=== PATIENT | female | born 2000 | race Hispanic/Latino ===

== ENCOUNTER 2020-10-02 21:59 | Emergency (ER) | payer BC, OTHER ==
--- OUTSIDE RECORDS SUMMARY | 2020-10-02 22:02 | XMS REPORT | Summary of Care ---
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 (spontaneous vaginal delivery) docusate calcium 240 Take 1 capsule by 60 capsule 1 11/04/2019 Active mg mouth once daily capsuleIndications: as needed for (spontaneous Constipation. vaginal delivery) ferrous sulfate 325 Take 1 tablet by 60 tablet 2 11/04/2019 Active mg (65 mg iron) mouth 2 (two) tabletIndications: times daily. (spontaneous vaginal delivery) ibuprofen 600 mg Take 1 tablet by 60 tablet 1 11/04/2019 Active tabletIndications: mouth every 6 (spontaneous (six) hours as vaginal delivery) needed (Pain). Take with food or milk. documented as of this encounter (statuses as of 07/13/2020) Active Problems Problem Noted Date Obesity (BMI 30-39.9) 09/15/2019 Hypertrophic scar 10/24/2017 Overview: Added automatically from request for jodie link [id number] Scoliosis 11/06/2016 ADHD (attention deficit hyperactivity disorder) Social anxiety disorder Bipolar disorder Allergic rhinitis documented as of this encounter (statuses as of 07/13/2020) Resolved Problems Problem Noted Date Resolved Date 39 weeks gestation of 11/01/2019 11/25/19 High-risk in third trimester 09/15/2019 0 11/25/2019 38 weeks gestation of 09/15/2019 11/25/19 documented as of this encounter (statuses as of 07/13/2020) Immunizations Name Administration Dates Next Due DTAP 05/01/2005, 11/27/2001, 04/10/2000, 01/10/2000, 1999 H1n1 Vaccine 08/13/2009 HEPATITIS A 01/01/2006, 05/01/2005 HPV9 11/04/2019 (Deferred: - pt would like to speak to her doctor about vaccine), 05/17/2012 Heamophilus Influenza B 12/11/2000, 04/10/2000, 01/10/2000, 1999 Hep B, Adol or Pedi Dosage 04/10/2000, 1999, 9 IPV 05/01/2005, 04/10/2000, 01/10/2000, 1999 Influenza Virus Vaccine Quad .5 mL IM 07/07/2019 6+ MO Influenza Virus Vaccine Quad Nasal 05/17/2012 MMR 05/01/2005, 12/11/2000 Meningococcal Vaccine 05/17/2012 Pneumococcal 7 Conjugate, PCV7 12/11/2000 (Prevnar7) TDAP 05/17/2012 TDAP (ADACEL) VACCINE 09/01/2019 09/01/2029 Td 07/04/2016 Varicella (varivax)(chicken pox) 12/11/2000 documented as of this encounter Social History Tobacco Use Types Packs/Day Years Used Date Former Smoker Cigarettes Quit: 03/07/20 Smokeless Tobacco: Never Used Alcohol Use Drinks/Week oz/Week Comments No 0 Standard drinks or equivalent 0.0 Sex Assigned at Date Recorded Not on file COVID-19 Exposure Response Date Recorded In the last month, have you been in contact with No / Unsure 06/22/2020 8:54 AM CDT someone who was confirmed or suspected to have Coronavirus / COVID-19? documented as of this encounter Last Filed Vital Signs Not on filedocumented in this encounter Nursing Notes Michelle Dutta - 07/13/2020 9:00 AM CDT Venipuncture collection performed by clean technique on the left forearm(s). Total of 1 attempts were made. Slight pressure and a bandage/dressing were applied to the site(s). The patient experienced no complications. The following specimens were processed according to instructions and sent to [facility] laboratories per lab order on 07/13/20: LT BLUE 1 SST RED LAV PPT DK GREEN (LiHep) DK GREEN (SodH) RIDDLE DK BLUE (K2) DK BLUE (S) ACD Blood Culture NIPT/NTD Patient has been identified by and name and was provided with cup, antiseptic towelette, and clean catch instructions. 2 urine specimen(s) sent. Unpreserved 1 Urine Culture Aptima tube 1 Other urine documented in this encounter Plan of Treatment Health Maintenance Due Date Last Done Comments HPV VACCINES (2 - 2-dose 08/22/2020 05/17/2012 Postpon ed from series) 11/17/2012 (Refu sed) CHLAMYDIA SCREENING 10/16/2020 10/16/2019, 03/19/2019 Depression Screening 10/16/2020 10/16/2019 INFLUENZA VACCINE (#1) 2021 07/07/2019, 05/17/2012 Po stponed from 05/25/2020 (Refu sed) MENINGOCOCCAL B VACCINES (1 06/22/2021 Post poned from of 2 - Risk Bexsero 2-dose 07/24 (Refused) series) WELL CARE VISIT: 12-06/22/2021 06/22/2020 YEARS (yearly) DTaP,Tdap,and Td Vaccines 09/01/2029 09/01/2019, 07/04/2016 , (9 - Td) 05/17/2012, Additional history exists PNEUMOCOCCAL 0-64 YEARS Aged Out 12/11/2000 No longe r eligible COMBINED SERIES based on patient 's age to complete this topic MENINGOCOCCAL VACCINE Aged Out 05/17/2012 No longer eligible based on patient 's age to complete this topic documented as of this encounter Results Not on filedocumented in this encounter Visit Diagnoses Diagnosis Hyperkalemia Hyperpotassemia Abnormal urinalysis Other nonspecific finding on examination of urine Pyuria Other nonspecific finding on examination of urine documented in this encounter Insurance Payer Benefit Plan / Subscriber ID Effective Phone Address T ype Group Dates [facility] [id number] 2015-Prese [phone] [address] PPO/POS nt [id number] [place] [address] [facility]ILDRENS [id number] 2019-Pres Me dicaid CHILDRENS [facility] HEALTH PLAN - MANAGED MEDICAID documented as of this encounter
--- OUTSIDE RECORDS SUMMARY | 2020-10-02 22:02 | XMS REPORT | Continuity of Care Document ---
:1999 Author Organization [facility] t Address [address] [place] [address] [address] [place] [address] Care Team Providers Name Role Phone Pob, Lab Main Attending Clinician Unavailable Problems This patient has no known problems. Allergies, Adverse Reactions, Alerts This patient has no known allergies or adverse reactions. Medications This patient has no known medications. Procedures This patient has no known procedures. Encounters Start End Encounter Admission Attending Care Care Encounter Source Date/Time Date/Time Type Type Clinicians Facility Department ID 2020-09-27 2020-09-27 Delivery Crew Member Telly Dowd [facility] [id number] 12:18:31 12:33:31 Visit Lab Main Alexis [id number] Herbert [id number] Melisa [id number] [facility] Building Results This patient has no known results.
--- OUTSIDE RECORDS SUMMARY | 2020-10-02 22:02 | XMS REPORT | Summary of Care ---
:1999 Author Organization [facility] - Health Address [address] [place] [address] Care Team Providers Name Role Phone Abby Finn MD Primary Care Provider Encounter Details Date Type Department Care Team Description 09/27/2020 Orders Only [facility] Doctor Unassigned, No [address] [facility] [place] [address] [address] [place] [address] Allergies No Known Allergiesdocumented as of this encounter (statuses as of 09/27/2020) Medications Medication Sig Dispensed Refills Start Date End Date Status vitamin w/FA Take 1 tablet 100 tablet 3 11/04/2019 Active tabletIndications: by mouth daily. (spontaneous vaginal delivery) docusate calcium 240 mg Take 1 capsule 60 capsule 1 11/04/2019 Active capsuleIndications: by mouth once (spontaneous vaginal daily as needed delivery) for Constipation. ferrous sulfate 325 mg Take 1 tablet 60 tablet 2 11/04/2019 Active (65 mg iron) by mouth 2 tabletIndications: (two) times (spontaneous vaginal daily. delivery) ibuprofen 600 mg Take 1 tablet 60 tablet 1 11/04/2019 Active tabletIndications: by mouth every (spontaneous vaginal 6 (six) hours delivery) as needed (Pain). Take with food or milk. diphenhydrAMINE 12.5 Take by mouth. 0 Active mg/5 mL elixir melatonin 3 mg Cap Take by mouth. 0 Active documented as of this encounter (statuses as of 09/27/2020) Active Problems Problem Noted Date Family history of congenital heart defect 08/25/2020 Short interval between pregnancies affecting in first trimester, 08/25/2020 antepartum Tobacco abuse 08/25/2020 Obesity (BMI 30-39.9) 09/15/2019 Hypertrophic scar 10/24/2017 Overview: Added automatically from request for jodie link [id number] Scoliosis 11/06/2016 ADHD (attention deficit hyperactivity disorder) Social anxiety disorder Bipolar disorder Allergic rhinitis Estimated Date of Delivery Comments Yes 04/11/2021 documented as of this encounter (statuses as of 09/27/2020) Resolved Problems Problem Noted Date Resolved Date 39 weeks gestation of 11/01/2019 11/25/19 High-risk in third trimester 09/15/2019 0 11/25/2019 38 weeks gestation of 09/15/2019 11/25/19 documented as of this encounter (statuses as of 09/27/2020) Immunizations Name Administration Dates Next Due DTAP 05/01/2005, 11/27/2001, 04/10/2000, 01/10/2000, 1999 H1n1 Vaccine 08/13/2009 HEPATITIS A 01/01/2006, 05/01/2005 HPV9 11/04/2019 (Deferred: - pt would like to speak to her doctor about vaccine), 05/17/2012 Heamophilus Influenza B 12/11/2000, 04/10/2000, 01/10/2000, 1999 Hep B, Adol or Pedi Dosage 04/10/2000, 1999, 9 IPV 05/01/2005, 04/10/2000, 01/10/2000, 1999 Influenza Virus Vaccine Quad .5 mL IM 08/25/2020, 07/07/2019 6+ MO Influenza Virus Vaccine Quad Nasal 05/17/2012 MMR 05/01/2005, 12/11/2000 Meningococcal Vaccine 05/17/2012 Pneumococcal 7 Conjugate, PCV7 12/11/2000 (Prevnar7) TDAP 05/17/2012 TDAP (ADACEL) VACCINE 09/01/2019 09/01/2029 Td 07/04/2016 Varicella (varivax)(chicken pox) 12/11/2000 documented as of this encounter Social History Tobacco Use Types Packs/Day Years Used Date Current Some Day Smoker Cigarettes Smokeless Tobacco: Never Used Comments: smokes 1 cigarette every 4-5 d ays Alcohol Use Drinks/Week oz/Week Comments No 0 Standard drinks or equivalent 0.0 Estimated Date of Delivery Comments Yes 04/11/2021 Sex Assigned at Date Recorded Not on file documented as of this encounter Last Filed Vital Signs Not on filedocumented in this encounter Plan of Treatment Date Type Specialty Care Team Description 09/27/2020 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 Visit Phlebotomy Mesha Rubi MD [address] [place] [phone] Poti, Telly Lab Main 10/12/2020 Routine Visit Obstetrics & Brittany Rubi MD Gynecology [address] [place] [phone] Health Maintenance Due Date Last Done Comments PNEUMOCOCCAL 0-64 YEARS 2005 12/11/2000 COMBINED SERIES (1 of 1 - PPSV23) HPV VACCINES (2 - 2-dose 11/17/2012 05/17/2012 series) Depression Screening 10/16/2020 10/16/2019 MENINGOCOCCAL B VACCINES (1 06/22/2021 Post poned from of 2 - Risk Bexsero 2-dose 07/24 (Refused) series) WELL CARE VISIT: 12-06/22/2021 06/22/2020 YEARS (yearly) CHLAMYDIA SCREENING 08/25/2021 08/25/2020, 07/13/2020, 10/16/2019, Additional history exists PAP SMEAR 08/25/2023 08/25/2020 DTaP,Tdap,and Td Vaccines 09/01/2029 09/01/2019, 07/04/2016 , (9 - Td) 05/17/2012, Additional history exists MENINGOCOCCAL VACCINE Aged Out 05/17/2012 No longer eligible based on patient 's age to complete this topic INFLUENZA VACCINE Completed 08/25/2020, 07/07/2019, 05/17/2012 documented as of this encounter Procedures Procedure Name Priority Date/Time Associated Diagnosis Comme nts ASSIGNMENT OF BENEFITS Routine 09/27/2020 12:18 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 [id number] 2015-Prese [phone] [address] PPO/POS nt [id number] [facility] [id number] 2019-Pres [facility] HEALTH PLAN - MANAGED MEDICAID documented as of this encounter
--- OUTSIDE RECORDS SUMMARY | 2020-10-02 22:03 | XMS REPORT | Summary of Care ---
:1999 Author Organization [facility] Address [address] [place] [address] Care Team Providers Name Role Phone Abby Finn MD Primary Care Provider Reason for Visit Reason Comments LAB WORK Auth/Cert Status Reason Specialty Diagnoses / Procedures Referred By Leanne garza Referred To Contact Phlebotomy Adc Pob Lab Dr fontenot Professional O ffice Building [address] [facility] , [address] [place] [address] Phone: Fax: Encounter Details Date Type Department Care Team Description 09/27/2020 Legal Director Visit [facility] Mesha Rubi MD [address] [place] [phone] 7 weeks gestation of ; Professional Office Pob, Adc Lab Main Vision changes Building Phlebotomy Lab Professional Office Building [address] [place] [address] , [address] [place] [phone] Allergies No Known Allergiesdocumented as of this [...] Added automatically from request for jodie link [id number] Scoliosis 11/06/2016 ADHD (attention deficit hyperactivity disorder) Social anxiety disorder Bipolar disorder Allergic rhinitis Estimated Date of Delivery Comments Yes 04/11/2021 documented as of this encounter (statuses as of 09/27/2020) Resolved Problems Problem Noted Date Resolved Date 39 weeks gestation of 11/01/2019 11/25/19 20 High-risk in third trimester 09/15/2019 0 11/25/2019 38 weeks gestation of 09/15/2019 11/25/19 20 documented as of this encounter (statuses as [...] been in contact with No / Unsure 09/27/2020 12:18 PM 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 documented as of this encounter Last Filed Vital Signs Not on filedocumented in this encounter Nursing Notes Luana Pemberton - 09/27/2020 1:00 PM CST Venipuncture collection performed by clean technique on the right anticubitus. Total of 1 attempts were made. Slight pressure and a bandage/dressing were applied to the site(s). The patient experiencedno complications. The following specimens were processed according to instructions and sent to [facility] laboratories per lab order on [id number]: LT BLUE 5 SST 1 RED 2 LAV PPT DK GREEN (LiHep) DK GREEN (SodH) RIDDLE DK BLUE (K2) DK BLUE (S) ACD Blood Culture NIPT/NTD documented in this encounter Plan of Treatment Date Type Specialty Care Team Description 10/12/2020 Routine Obstetrics & Gynecology Agatha Rubi MD Visit [address] [place] [phone] Name Type Priority Associated Diagnoses Date/Ti me HEPATITIS B SURFACE LAB Routine 7 weeks gestation of 09/27/2020 1:39 PM OTR FLATBED DRIVER ANTIGEN HCV ANTIBODY LAB Routine 7 weeks gestation of 021 1:39 PM OTR FLATBED DRIVER RUBELLA SCREEN IGG LAB Routine 7 weeks gestation of 0 09/27/2020 1:39 PM OTR FLATBED DRIVER VZV ANTIBODY SCREEN LAB Routine 7 weeks gestation of 09/27/2020 1:39 PM OTR FLATBED DRIVER ADC OR ALEX ONLY - LAB Routine 7 weeks gestation o f 09/27/2020 1:39 PM OTR FLATBED DRIVER RPR PROLACTIN LAB Routine Vision changes 09/27/2020 1 :39 PM OTR FLATBED DRIVER Health Maintenance Due Date Last Done Comments [...] Name Priority Date/Time Associated Diagnosis Comme nts HIV 1/2 AG-AB WITH Routine 09/27/2020 1:39 PM 7 weeks gestati on of Results for this REFLEX OTR FLATBED DRIVER procedure are i n the results section. ADC / LCC - DRUG Routine 09/27/2020 1:39 PM 7 weeks gestation of Results for this SCREEN TRIAGE OTR FLATBED DRIVER procedure are in the results section. CBC WITH DIFF Routine 09/27/2020 1:39 PM 7 weeks gestation of Results for this OTR FLATBED DRIVER procedure are i n the results section. GLUCOSE 1 HOUR POST Routine 09/27/2020 1:39 PM 7 weeks gestat ion of Results for this PRANDIAL OTR FLATBED DRIVER procedure are i n the results section. documented in this encounter Results GLUCOSE 1 HOUR POST PRANDIAL (09/27/2020 1:39 PM OTR FLATBED DRIVER) Pathologist Sig nature GLUC 1 HR 93 (L) 120 - 170 mg/dL [facility] Specimen Blood - VENOUS Performing Organization Address [facility] Phone Number [facility] CLIA: [id number] [place] [address] LABORATORY [address] [facility] ADC / LCC - DRUG SCREEN TRIAGE (09/27/2020 1:39 PM OTR FLATBED DRIVER) Pathologist Sig nature BENZO U Negative Negative [facility] MICHELE U Negative Negative [facility] AMPHET Negative Negative [facility] THC Negative Negative [facility] METHADONE Negative Negative [facility] Meth U Negative Negative [facility] OPIATES Negative Negative [facility] Cocaine Metabolite Negative Negative [facility] PROPOXY Negative Negative [facility] Tric U Negative Negative [facility] PCP Negative Negative [facility] OXYCOD Negative Negative [facility] Specimen Urine - URINE, CLEAN CATCH Narrative Performed At Urine Drug Cutoff Ranges [facility] Benzodiazepines: 150 ng/mL Barbiturates: 200 ng/mL Amphetamine: 500 ng/mL Cannabinoids: 50 ng/mL Methadone: 200 ng/mL Methamphetamine: 500 ng/mL Opiates: 100 ng/mL or 2000 ng/mL Cocaine: 150 ng/mL Propoxyphene: 300 ng/mL Tricyclics: 300 ng/mL Oxycodone: 100 ng/mL PCP: 25 ng/mL The results are to be used only for medical (i.e., treatment) purposes. Unconfirmed screening results must not be used for non-medical purposes (e.g., employment testing, legal testing). Performing Organization Address [facility] Phone Number [facility] CLIA: [id number] [place] [address] [place] [address] HIV 1/2 AG-AB WITH REFLEX (09/27/2020 1:39 PM OTR FLATBED DRIVER) Pathologist Sig nature HIV 1/2 Ag-Ab with Negative Negative [facility] Reflex HOSPITAL LAB[facility]ATORY HIV Semi-quantitative 0.06 [facility] Specimen Blood - VENOUS Narrative Performed At Non-reactive for HIV-1 antigen and HIV-1/HIV-2 [facility] antibodies. No laboratory evidence of HIV infection. Repeat in 2-4 weeks if acute HIV infection is suspected. Performing Organization Address City/State/Zipcode Phone Number [facility] CLIA: [id number] [place] [address] CBC WITH DIFF (09/27/2020 1:39 PM OTR FLATBED DRIVER) Pathologist Sig nature WBC 7.32 4.30 - 11.10 [facility] 10*3/L [facility] RBC 4.39 3.93 - 5.25 [facility] 10*6/L [facility] HGB 12.8 11.6 - 15.0 [facility] g/dL [facility] HCT 37.6 35.7 - 45.2 % [facility] MCV 85.6 80.6 - 95.5 fL [facility] MCH 29.2 25.9 - 32.8 pg [facility] MCHC 34.0 31.6 - 35.1 [facility] g/dL [facility] RDW-SD 40.6 39.0 - 49.9 fL [facility] RDW-CV 13.1 12.0 - 15.5 % [facility] PLT 251 166 - 358 [facility] 10*3/L [facility] MPV 9.7 9.5 - 12.9 fL [facility] NRBC/100 WBC 0.0 0.0 - 10.0 /100 [facility] WBCs [facility] NRBC x10^3 <0.01 10*3/L [facility] GRAN MAT (NEUT) % 59.4 % [facility] IMM GRAN % 0.30 % [facility] LYMPH % 33.2 % [facility] MONO % 4.0 % [facility] EOS % 2.7 % [facility] BASO % 0.4 % [facility] GRAN MAT x10^3(ANC) 4.35 1.88 - 7.09 [facility] 10*3/uL HOSPITAL LABORATORY IMM GRAN x10^3 <0.03 0.00 - 0.06 [facility] 10*3/uL HOSPITAL LAB[facility]ATORY LYMPH x10^3 2.43 1.32 - 3.29 [facility] 10*3/uL HOSPITAL LABORATORY MONO x10^3 0.29 (L) 0.33 - 0.92 [facility] 10*3/uL HOSPITAL LABORATORY EOS x10^3 0.20 0.03 - 0.39 [facility] 10*3/uL HOSPITAL LABORATORY BASO x10^3 0.03 0.01 - 0.07 [facility] 10*3/uL [facility] Specimen Blood - VENOUS Performing Organization Address City/State/Zipcode Phone Number [facility] CLIA: [id number] [place] [address] documented in this encounter Visit Diagnoses Diagnosis 7 weeks gestation of Vision changes Unspecified visual disturbance documented in this encounter Insurance Payer Benefit Plan / Subscriber ID Effective Phone Address T ype Group Dates [facility] [id number] 2015-Josephine [phone] [address] PPO/POS nt [id number] [place] [address] [facility] CHILDRENS [id number] 2019-Pres [facility] - MANAGED MEDICAID documented as of this encounter
--- OUTSIDE RECORDS SUMMARY | 2020-10-02 22:03 | XMS REPORT | Summary of Care ---
:2000 Author Organization [facility] Address [address] [place] [id number] Care Team Providers Name Role Phone Abby Finn MD Primary Care Provider Reason for Visit Reason Comments LAB WORK Auth/Cert Status Reason Specialty Diagnoses / Procedures Referred By Leanne garza Referred To Contact Phlebotomy Adc Pob Lab Dr fontenot Professional O ffice Building [address] [facility] [facility] , [address] [place] [address] Phone: Fax: Encounter Details Date Type Department Care Team Description 09/27/2020 Tile Erector Visit [facility] Mesha Rubi MD [address] [place] [phone] 7 weeks gestation of ; Professional Office Pob, Adc Lab Main Vision changes Building Phlebotomy Lab Professional Office Building [address] [place] [address] , [address] [place] [address] Allergies No Known Allergiesdocumented as [...] Added automatically from request for jodie link [id number] Scoliosis 11/06/2016 ADHD (attention deficit hyperactivity disorder) [...] with No / Unsure 09/27/2020 12:18 PM BIAS MACHINE OPERATOR HELPER someone who was confirmed or suspected to [...] processed according to instructions and sent to [facility] per lab order on [id number]: LT BLUE 5 SST 1 RED 2 LAV PPT DK GREEN (LiHep) DK GREEN (SodH) RIDDLE DK BLUE (K2) DK BLUE (S) ACD Blood Culture NIPT/NTD documented in this encounter Plan of Treatment Date Type Specialty Care Team Description 10/12/2020 Routine Obstetrics & Gynecology Agatha Rubi MD Visit [address] [place] [phone] Name Type Priority Associated Diagnoses Date/Ti me HEPATITIS B SURFACE LAB Routine 7 weeks gestation of 09/27/2020 1:39 PM BIAS MACHINE OPERATOR HELPER ANTIGEN HCV ANTIBODY LAB Routine 7 weeks gestation of 021 1:39 PM BIAS MACHINE OPERATOR HELPER RUBELLA SCREEN IGG LAB Routine 7 weeks gestation of 0 09/27/2020 1:39 PM BIAS MACHINE OPERATOR HELPER VZV ANTIBODY SCREEN LAB Routine 7 weeks gestation of 09/27/2020 1:39 PM BIAS MACHINE OPERATOR HELPER ADC OR ALEX ONLY - LAB Routine 7 weeks gestation o f 09/27/2020 1:39 PM BIAS MACHINE OPERATOR HELPER RPR PROLACTIN LAB Routine Vision changes 09/27/2020 1 :39 PM BIAS MACHINE OPERATOR HELPER Health Maintenance Due Date Last Done Comments [...] gestati on of Results for this REFLEX BIAS MACHINE OPERATOR HELPER procedure are i n the results section. ADC / LCC - DRUG Routine 09/27/2020 1:39 PM 7 weeks gestation of Results for this SCREEN TRIAGE BIAS MACHINE OPERATOR HELPER procedure are in the results section. CBC WITH DIFF Routine 09/27/2020 1:39 PM 7 weeks gestation of Results for this BIAS MACHINE OPERATOR HELPER procedure are i n the results section. GLUCOSE 1 HOUR POST Routine 09/27/2020 1:39 PM 7 weeks gestat ion of Results for this PRANDIAL BIAS MACHINE OPERATOR HELPER procedure are i n the results section. documented in this encounter Results GLUCOSE 1 HOUR POST PRANDIAL (09/27/2020 1:39 PM BIAS MACHINE OPERATOR HELPER) Pathologist Sig nature GLUC 1 HR 93 (L) 120 - 170 mg/dL [facility] LABORATORY Specimen Blood - VENOUS Performing Organization Address [facility] Phone Number [facility] CLIA: [id number] [place] [address] LABORATORY [address] [facility] ADC / LCC - DRUG SCREEN TRIAGE (09/27/2020 1:39 PM BIAS MACHINE OPERATOR HELPER) Pathologist Sig nature BENZO U Negative Negative [facility] MICHELE U Negative Negative [facility] AMPHET Negative Negative [facility] THC Negative Negative [facility] METHADONE Negative Negative [facility] Meth U Negative Negative [facility] OPIATES Negative Negative [facility] Cocaine Metabolite Negative Negative [facility] PROPOXY Negative Negative [facility] Tric U Negative Negative [facility] PCP Negative Negative [facility] OXYCOD Negative Negative [facility] Specimen Urine - URINE, CLEAN CATCH Narrative Performed At Urine Drug Cutoff Ranges [facility] Benzodiazepines: 150 ng/mL Barbiturates: 200 ng/mL [...] employment testing, legal testing). Performing Organization Address [facility] Phone Number [facility] CLIA: [id number] [place] [address] [place] [address] HIV 1/2 AG-AB WITH REFLEX (09/27/2020 1:39 PM BIAS MACHINE OPERATOR HELPER) Pathologist Sig nature HIV 1/2 Ag-Ab with Negative Negative [facility] Reflex [facility]PITAL LABORATORY HIV Semi-quantitative 0.06 [facility] Specimen Blood - VENOUS Narrative Performed At Non-reactive for HIV-1 antigen and HIV-1/HIV-2 [facility] LAB[facility] antibodies. No laboratory evidence of HIV infection. Repeat in 2-4 weeks if acute HIV infection is suspected. Performing Organization Address City/State/Zipcode Phone Number [facility] CLIA: [id number] [place] [address] CBC WITH DIFF (09/27/2020 1:39 PM BIAS MACHINE OPERATOR HELPER) Pathologist Sig nature WBC 7.32 4.30 - 11.10 [facility] 10*3/L [facility] LABOR[facility] RBC 4.39 3.93 - 5.25 [facility] 10*6/L [facility] HGB 12.8 11.6 - 15.0 [facility] g/dL [facility] HCT 37.6 35.7 - 45.2 % [facility] MCV 85.6 80.6 - 95.5 fL [facility] MCH 29.2 25.9 - 32.8 pg [facility] MCHC 34.0 31.6 - 35.1 [facility] g/dL [facility] RDW-SD 40.6 39.0 - 49.9 fL [facility] RDW-CV 13.1 12.0 - 15.5 % [facility] PLT 251 166 - 358 [facility] 10*3/L [facility] MPV 9.7 9.5 - 12.9 fL [facility] NRBC/100 WBC 0.0 0.0 - 10.0 /100 [facility] WBCs [facility] NRBC x10^3 <0.01 10*3/L [facility] GRAN MAT (NEUT) % 59.4 % [facility] IMM GRAN % 0.30 % [facility] LYMPH % 33.2 % [facility] MONO % 4.0 % [facility] EOS % 2.7 % [facility] BASO % 0.4 % [facility] GRAN MAT x10^3(ANC) 4.35 1.88 - 7.09 [facility] 10*3/uL HOSPITAL LABORATORY IMM GRAN x10^3 <0.03 0.00 - 0.06 [facility] 10*3/uL HOSPITAL LABORATORY LYMPH x10^3 2.43 1.32 - 3.29 [facility] 10*3/uL HOSPITAL LABORATORY MONO x10^3 0.29 (L) 0.33 - 0.92 [facility] 10*3/uL HOSPITAL LABORATORY EOS x10^3 0.20 0.03 - 0.39 [facility] 10*3/uL HOSPITAL LABORATORY BASO x10^3 0.03 0.01 - 0.07 [facility] 10*3/uL [facility] Specimen Blood - VENOUS Performing Organization Address City/State/Zipcode Phone Number [facility] CLIA: [id number] [place] [address] documented in this encounter Visit Diagnoses Diagnosis 7 weeks gestation of Vision changes Unspecified visual disturbance documented in this encounter Insurance Payer Benefit Plan / Subscriber ID Effective Phone Address T ype Group Dates [facility] [id number] 2015-Josephine [phone] PPO/POS nt [id number] [place] [address] [facility] [id number] 2019-Pres [facility] - MANAGED MEDICAID documented as of this encounter
[2020-10-02 23:54] LABS: Urine Blood NEGATIVE (NEG); Urine Glucose NEGATIVE (NEG); Urine Protein NEGATIVE (NEG); Urine Specific Gravity 1.015 (1.005-1.030)
[2020-10-03 00:33] LABS: Barbiturates NEGATIVE (NEGATIVE); Benzodiazepines NEGATIVE (NEGATIVE); Cocaine NEGATIVE (NEGATIVE); METHAMPHETAM NEGATIVE (NEGATIVE); Methadone NEGATIVE (NEGATIVE); Opiates NEGATIVE (NEGATIVE); Phencyclidine NEGATIVE (NEGATIVE); THC Cannibis NEGATIVE (NEGATIVE)
[2020-10-03 00:48] LABS: Protime INR 1.1
[2020-10-03 00:50] LABS: Absolute Lymphocytes (CBC) 2.8 K/uL (0.7-4.9); Basophils % 0.4 % (0-1.3); Hematocrit 38.2 % (36.0-45.0); Lymphocytes % 39.8 % (15.3-44.8); MPV 8.3 fL (7.6-11.3); RBC Red Blood Cell Count 4.55 M/uL (3.86-4.86)
[2020-10-03 01:05] LABS: ALT/SGPT 21 U/L (12-78); AST/SGOT 13 U/L (15-37); Albumin 3.9 g/dL (3.4-5.0); Alkaline Phosphatase 44 U/L (45-117); BUN Blood Urea Nitrogen 7 mg/dL (7-18); Bicarbonate 25 mmol/L (21-32); Bilirubin Direct 0.1 mg/dL (0-0.2); Bilirubin Total 0.6 mg/dL (0.2-1.0); Glucose Level 106 mg/dL (74-106); Magnesium 2.1 mg/dL (1.8-2.4); NT PRO-BNP 70 pg/mL (<125); Potassium 3.5 mmol/L (3.5-5.1); Protein, Total 7.6 g/dL (6.4-8.2); Sodium Level 138 mmol/L (136-145)
[2020-10-03 01:34] LABS: HCG, Quantitative 86913 mIU/mL (1-3); Troponin (Emerg Dept Use Only) < 0.02 ng/mL (0.0-0.045)
--- NOTE | 2020-10-03 02:54 | ER ---
Nurse's Notes [facility] Name: Tyrell Harvey Age: 20 yrs Sex: Female : 2000 Arrival Date: 10/02/2020 Time: 22:06 Bed 8 Private MD: Diagnosis: Vertigo;UTI Presentation: 10/02 22:10 Chief complaint: Patient states: I felt like I was going to pass out throughout the ca1 day. I am dizzy and I am seeing spots and it is getting worse. at [address] with previous and actually passed out. Coronavirus screen: Client denies travel out of the [place] in the last 14 days. At this time, the client does not indicate any symptoms associated with coronavirus-19. Ebola Screen: Patient negative for fever greater than or equal to 101.5 degrees Fahrenheit, and additional compatible Ebola Virus Disease symptoms Patient denies exposure to infectious person. Patient denies travel to an Ebola-affected area in the 21 days before illness onset. No symptoms or risks identified at this time. Initial Sepsis Screen: Does the patient meet any 2 criteria? No. Patient's initial sepsis screen is negative. Does the patient have a suspected source of infection? No. Patient's initial sepsis screen is negative. Risk Assessment: Do you want to hurt yourself or someone else? Patient reports no desire to harm self or others. Onset of symptoms was October 02, 2020. 22:10 Method Of Arrival: Ambulatory ca1 22:10 Acuity: МАРИНА 3 ca1 Triage Assessment: 10/03 03:03 General: Appears comfortable, Behavior is calm, cooperative. 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 - Social history:: Smoking status: Patient denies any tobacco usage or history of. Screenin/10 01:47 Abuse screen: Denies threats or abuse. Nutritional screening: No deficits noted. ea Tuberculosis screening: No symptoms or risk factors identified. Fall Risk IV access (20 points). Assessment: 00:00 General: Appears comfortable, Behavior is calm, cooperative. rv 00:00 Pain: Denies pain. Neuro: Level of Consciousness is awake, alert, obeys commands, rv Oriented to person, place, time, situation. Cardiovascular: Patient's skin is warm and dry. Respiratory: Airway is patent Respiratory effort is even, unlabored, Breath sounds are clear bilaterally. Derm: Skin is intact. Vital Signs: 10/02 22:10 BP 120 / 59; Pulse 68; Resp 18 S; Temp 97.9(TE); Pulse Ox 100% on R/A; Height 5 ft. 7 ca1 in. (170.18 cm) (R); 10/03 03:03 BP 103 / 63; Pulse 76; Resp 16; Temp 98; Pulse Ox 99% on R/A; rv Vitals: 01:36 Heart Tones 150s. rv ED Course: 10/02 22:06 Patient arrived in ED. es 22:12 Triage completed. ca1 22:13 Arm band placed on right wrist. ca1 23:00 Patient has correct armband on for positive identification. Bed in low position. Call ea light in reach. 23:40 Juve Kim MD is Attending Physician. [facility] 23:51 Donny Delgado, NICKY is Primary Nurse. rv 10/03 00:27 Initial lab(s) drawn, by me, sent to lab. Inserted saline lock: 20 gauge in right tt3 antecubital area, using aseptic technique. Blood collected. 00:42 XRAY Chest (1 view) In Process Unspecified. EDMS 00:52 CT Head Brain wo Cont In Process Unspecified. EDMS 03:05 No provider procedures requiring assistance completed. IV discontinued, intact, rv bleeding controlled, No redness/swelling at site. Pressure dressing applied. Administered Medications: 03:03 Drug: Macrobid 100 mg Route: PO; rv 03:03 Follow up: Response: Medication administered at discharge. rv Outcome: 02:53 Discharge ordered by . 7 03:05 Discharged to home ambulatory. rv 03:05 Condition: good 03:05 Discharge instructions given to patient, Instructed on discharge instructions, follow up and referral plans. medication usage, Demonstrated understanding of instructions, follow-up care, medications, Prescriptions given X 2. 03:06 Patient left the ED. rv Signatures: Dispatcher [employer] Irene Sandra Elena RN Donny Toney ea, RN RN rv Acob, Cheryl, RN RN ca1 Juve Kim MD MD mh7 Trav Stone tt3 Corrections: (The following items were deleted from the chart) 10/02 22:15 22:10 Chief complaint: Patient states: I felt like I was going to pass out throughout ca1 the day. I am dizzy and I am seeing spots and it is getting worse. at 12 weeks. ca1 10/03 03:05 10/02 22:30 General: Appears rv rv
--- NOTE | 2020-10-03 02:54 | EDPHYS ---
Physician Documentation [facility] Name: Tyrell Harvey Age: 20 yrs Sex: Female : 2000 Arrival Date: 10/02/2020 Time: 22:06 Bed 8 Private MD: ED Physician Juve Kim HPI: 10/03 00:44 This 20 yrs old Female presents to ER via Ambulatory with complaints of mh7 Blurred Vision, Near Syncope. 00:44 The patient has experienced near-syncope, felt dizzy. Onset: The symptoms/episode mh7 began/occurred yesterday. 00:45 Duration: The patient has had multiple episodes, that last 5 minute(s). Context: the mh7 episode(s) was witnessed, by no one, occurred at home, occurred while the patient was sitting, Just prior to the episode the patient experienced blurred vision, dizziness, Spinning sensation. Associated injury: The patient did not suffer any apparent associated injury. Associated signs and symptoms: Pertinent positives: blurred vision, dizziness, nausea, 1st trimester, vertigo, Pertinent negatives: abdominal pain, agitation, ataxia, chest pain, combativeness, confusion, diaphoresis, diarrhea, headache, lightheadedness, numbness, palpitations, seizure, shortness of breath, tingling, vomiting, weakness. Current symptoms: Currently, the patient is not experiencing any symptoms, the patient feels back to baseline. The patient has experienced similar episodes in the past, multiple times. Buhl dizziness with spinning sensation, nausea, and blurred vision. She has not passed out. She has had symptoms intermittently for more than a month. She reports similar issue with last . . 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 - Social history:: Smoking status: Patient denies any tobacco usage or history of. ROS: 10/03 00:45 Constitutional: Negative for fever, chills, and weight loss, ENT: Negative for injury, mh7 pain, and discharge, Neck: Negative for injury, pain, and swelling, Cardiovascular: Negative for chest pain, palpitations, and edema, Respiratory: Negative for shortness of breath, cough, wheezing, and pleuritic chest pain, Back: Negative for injury and pain, : Negative for injury, bleeding, discharge, and swelling, MS/Extremity: Negative for injury and deformity, Skin: Negative for injury, rash, and discoloration, Psych: Negative for depression, anxiety, suicide ideation, homicidal ideation, and hallucinations, Allergy/Immunology: Negative for hives, rash, and allergies, Endocrine: Negative for neck swelling, polydipsia, polyuria, polyphagia, and marked weight changes, Hematologic/Lymphatic: Negative for swollen nodes, abnormal bleeding, and unusual bruising. Exam: 00:45 Constitutional: This is a well developed, well nourished patient who is awake, alert, mh7 and in no acute distress. Head/Face: Normocephalic, atraumatic. Eyes: Pupils equal round and reactive to light, extra-ocular motions intact. Lids and lashes normal. Conjunctiva and sclera are non-icteric and not injected. Cornea within normal limits. Periorbital areas with no swelling, redness, or edema. ENT: Nares patent. No nasal discharge, no septal abnormalities noted. Tympanic membranes are normal and external auditory canals are clear. Oropharynx with no redness, swelling, or masses, exudates, or evidence of obstruction, uvula midline. Mucous membranes moist. Neck: Trachea midline, no thyromegaly or masses palpated, and no cervical lymphadenopathy. Supple, full range of motion without nuchal rigidity, or vertebral point tenderness. No Meningismus. Chest/axilla: Normal chest wall appearance and motion. Nontender with no deformity. No lesions are appreciated. Cardiovascular: Regular rate and rhythm with a normal S1 and S2. No gallops, murmurs, or rubs. Normal PMI, no JVD. No pulse deficits. Respiratory: Lungs have equal breath sounds bilaterally, clear to auscultation and percussion. No rales, rhonchi or wheezes noted. No increased work of breathing, no retractions or nasal flaring. Abdomen/GI: Soft, non-tender, with normal bowel sounds. No distension or tympany. No guarding or rebound. No evidence of tenderness throughout. Back: No spinal tenderness. No costovertebral tenderness. Full range of motion. Skin: Warm, dry with normal turgor. Normal color with no rashes, no lesions, and no evidence of cellulitis. MS/ Extremity: Pulses equal, no cyanosis. Neurovascular intact. Full, normal range of motion. Neuro: Awake and alert, GCS 15, oriented to person, place, time, and situation. Cranial nerves II-XII grossly intact. Motor strength 5/5 in all extremities. Sensory grossly intact. Cerebellar exam normal. Normal gait. Psych: Awake, alert, with orientation to person, place and time. Behavior, mood, and affect are within normal limits. Vital Signs: 10/02 22:10 BP 120 / 59; Pulse 68; Resp 18 S; Temp 97.9(TE); Pulse Ox 100% on R/A; Height 5 ft. 7 ca1 in. (170.18 cm) (R); 10/03 03:03 BP 103 / 63; Pulse 76; Resp 16; Temp 98; Pulse Ox 99% on R/A; rv MDM: 02:49 Differential Diagnosis: cardiac arrhythmia, emotional response, idiopathic syncope, mh7 , pseudo seizure, seizure, Vertigo. Data reviewed: vital signs, nurses notes, lab test result(s), Beta HCG: cardiac enzymes, CBC, electrolytes, urinalysis, EKG, radiologic studies, CT scan, plain films. Data interpreted: Pulse oximetry: on room air is 100 %. Interpretation: normal. Counseling: I had a detailed discussion with the patient and/or guardian regarding: the historical points, exam findings, and any diagnostic results supporting the discharge/admit diagnosis, lab results, radiology results, the need for outpatient follow up, to return to the emergency department if symptoms worsen or persist or if there are any questions or concerns that arise at home. Response to treatment: the patient's symptoms have resolved after treatment, the patient's blood pressure is in an acceptable range, mental status has returned to baseline, the patient no longer shows bradycardia, the patient is not short of breath, the patient is not tachycardic, the patient's pain is gone, the patient's temperature has normalized, the patient is now symptom free, patient is well hydrated. 02:53 Patient medically screened. mh7 10/02 23:51 Order name: Urine Dipstick--Ancillary (enter results); Complete Time: 00:05 sp 10/02 23:51 Order name: Test Urine - POC; Complete Time: 00:05 sp 10/03 00:06 Order name: Basic Metabolic Panel; Complete Time: 01:56 [facility] 10/03 00:06 Order name: CBC with Diff; Complete Time: 01:56 [facility] 10/03 00:06 Order name: LFT's; Complete Time: 01:56 [facility] 10/03 00:06 Order name: Magnesium; Complete Time: 01:56 [facility] 10/03 00:06 Order name: NT PRO-BNP; Complete Time: 01:56 [facility] 10/03 00:06 Order name: PT-INR; Complete Time: 01:56 [facility] 10/03 00:06 Order name: Troponin (emerg Dept Use Only); Complete Time: 01:56 [facility] 10/03 00:06 Order name: XRAY Chest (1 view) [facility] 10/03 00:07 Order name: UDS; Complete Time: 01:56 [facility] 10/03 00:08 Order name: HCG-Quantitative; Complete Time: :56 [facility] 10/03 00:08 Order name: Abo/rh Typing; Complete Time: 01:56 [facility] 10/02 23:45 Order name: Urine Dipstick-Ancillary (obtain specimen); Complete Time: 00:02 [facility] 10/02 23:45 Order name: Urine Test (obtain specimen); Complete Time: 00:02 [facility] 10/03 00:06 Order name: EKG; Complete Time: 00:08 [facility] 10/03 00:06 Order name: Cardiac monitoring; Complete Time: 01:37 [facility] 10/03 00:06 Order name: EKG - Nurse/Tech; Complete Time: 01:48 [facility] 10/03 00:06 Order name: IV Saline Lock; Complete Time: 00:30 10/03 00:06 Order name: Labs collected and sent; Complete Time: 00:30 [facility] 10/03 00:06 Order name: O2 Per Protocol; Complete Time: 01:37 [facility] 10/03 00:06 Order name: O2 Sat Monitoring; Complete Time: 01:37 [facility] 10/03 00:06 Order name: CT Head Brain wo Cont 10/03 00:06 Order name: Heart Tones; Complete Time: 01:35 mh7 Administered Medications: 03:03 Drug: Macrobid 100 mg Route: PO; rv 03:03 Follow up: Response: Medication administered at discharge. rv Disposition: 10/03/20 02:53 Discharged to Home. Impression: Vertigo, UTI. - Condition is Stable. - Discharge Instructions: Vertigo, [id number], and Urinary Tract Infection. - Prescriptions for Meclizine 25 mg Oral Tablet - take 1 tablet by ORAL route every 8 hours As needed; 20 tablet. Macrobid 100 mg Oral Capsule - take 1 capsule by ORAL route every 12 hours for 7 days; 14 capsule. - Medication Reconciliation Form, Thank You Letter, Antibiotic Education, Prescription Opioid Use form. - Follow up: Private Physician; When: 1 - 2 days; Reason: Worsening of condition, Recheck today's complaints, Continuance of care, Re-evaluation by your physician. - Problem is an acute exacerbation. - Symptoms have improved. Signatures: Dispatcher [employer] EDMS Emily Miller RN RN [facility] Donny Delgado RN RN Ackike, NICKY Guevara RN ca1 Juve Kim MD MD 7 Corrections: (The following items were deleted from the chart) 03:06 02:53 10/03/2020 02:53 Discharged to Home. Impression: Vertigo; UTI. Condition is rv Stable. Forms are Medication Reconciliation Form, Thank You Letter, Antibiotic Education, Prescription Opioid Use. Follow up: Private Physician; When: 1 - 2 days; Reason: Worsening of condition, Recheck today's complaints, Continuance of care, Re-evaluation by your physician. Problem is an acute exacerbation. Symptoms have improved. 7
[2020-10-03] MEDS ORDERED: NITROFURAN MACRO 100 MG CAP PO ONE (03:12)
[2020-10-03 03:34] VITALS: BP 103/63; TEMP 98; O2SAT 99
--- NOTE | 2020-10-03 07:24 | EKG ---
Test Date: 2020-10-03 Test Time: 01:43:35 Manager Environmental Services: RV MEASUREMENT RESULTS: Intervals: Rate: 65 MT: 154 QRSD: 92 QT: 398 QTc: 413 [place]: P: 47 MT: 154 QRS: 96 T: 96 INTERPRETIVE STATEMENTS: Normal sinus rhythm Possible Lateral infarct, age undetermined Abnormal ECG No previous ECG available for comparison Electronically Signed On 10-03-20 07:23:53 JIGGER OPERATOR by Ck Cardona
--- NOTE | 2020-10-03 12:21 | RAD REPORT ---
EXAM DESCRIPTION: RAD - Chest Single View - 10/03/2020 12:42 am CLINICAL HISTORY: Dizziness Chest pain. COMPARISON: No comparisons FINDINGS: Portable technique limits examination quality. The lungs are grossly clear. It is possible but dextrocardia is present versus mislabeled radiograph. Heart size is normal. Recommended dedicated two views of the chest for followup.
--- NOTE | 2020-10-03 20:04 | RAD REPORT ---
EXAM DESCRIPTION: Head Brain Wo Cont CLINICAL HISTORY: 20 years Female DIZZINESS COMPARISON: None TECHNIQUE: Contiguous axial images of the brain were obtained without the administration of intraven ous contrast.This exam was performed according to our departmental dose-optimization program which in cludes use of Automated Exposure Control, adjustment of the mA and/or kV according to patient size an d/or use of iterative reconstruction technique. DLP: 788 mGy*cm FINDINGS: Brain: No acute intracranial hemorrhage. No extra-axial collection. No mass effect or bee iation. Ventricles: Within normal limits in size. Globes and orbits: No acute abnormality. Bones: No acute osseous finding Paranasal sinuses: Paranasal sinuses are clear. Mastoid air cells: Well pneumatized. Soft tissues: Within normal limits IMPRESSION: No acute intracranial abnormality. 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 The interpreting radiologist is fully responsible for the content of the report.
== END 2020-10-03 03:06 | disposition home or self-care (01) ==
LOC: ER 21:59
DX: O23.41 Unspecified infection of urinary tract in pregnancy, first trimester (principal); Z3A.00 Weeks of gestation of pregnancy not specified
CPT/HCPCS: 36415; 70450; 71045; 80048; 80076; 80307; 81003; 81025; 83735; 83880; 84484; 84702; 85025; 85610; 86900; 86901; 93005; 99284

== ENCOUNTER 2021-03-29 21:53 | Emergency (ER) | payer BC, OTHER ==
--- OUTSIDE RECORDS SUMMARY | 2021-03-29 22:00 | XMS REPORT | Continuity of Care Document ---
:2000 Author Organization [facility] t Address [address] [place] [address] Care Team Providers Name Role Phone Pob, Lab Main Attending Clinician Unavailable Doctor Unassigned, Name Attending Clinician Unavailable Ultrasound Attending Clinician Unavailable Problems This patient has no known problems. Allergies, Adverse Reactions, Alerts This patient has no known allergies or adverse reactions. Medications This patient has no known medications. Procedures This patient has no known procedures. Encounters Start End Encounter Admission Attending Care Care Encounter Source Date/Time Date/Time Type Type Clinicians Facility Department ID 2021-03-16 2021-03-16 Electrical Controls Engineer Telly Dowd [facility] 1.2.840.114 [id number] 13:06:20 13:21:20 Visit [facility] [id number] [place] [id number] [facility] [phone] [address] 2021-03-14 2021-03-14 Orders Doctor DEVEN [id number] 00:00:00 00:00:00 Only Unassigned, [facility] [id number] [facility] [phone] [id number] 2020-12-15 2020-12-15 Electrical Controls Engineer Ultrasound, [facility] 1.2.840.114 [id number] 10:36:24 11:36:24 Visit Estefany DUAL RATE SUPERVISOR [id number] [facility] [id number] MATERNAL [phone] & CHILD [address] [place] [address] 2020-11-16 2020-11-16 Electrical Controls Engineer Ultrasound, [facility] 1.2.840.114 [id number] 13:26:24 14:54:24 Visit [facility] DUAL RATE SUPERVISOR [id number] [facility] [id number] MATERNAL [phone] & CHILD [address] [place] [address] 2020-09-27 2020-09-27 Electrical Controls Engineer Telly Dowd [facility] [id number] 12:18:31 12:33:31 Visit Lab [facility] [place] [id number] [place] [id number] [place] [phone] [address] 2020-09-14 2020-09-14 Orders Doctor DEVEN [id number] 00:00:00 00:00:00 Only Unassigned, KYRA [id number] [facility] [id number] Results This patient has no known results.
--- NOTE | 2021-03-30 07:14 | ER ---
Nurse's Notes [facility] Name: Tyrell Harvey Age: 20 yrs Sex: Female : 2000 Arrival Date: 03/29/2021 Time: 21:57 Bed External Waiting Private MD: Diagnosis: Presentation: 03/29 22:20 Chief complaint: Patient states: she is unable to eat all day feels like she is going bb to vomit when she tries to eat she has vomited x 1today. Coronavirus screen: At this time, the client does not indicate any symptoms associated with coronavirus-19. Ebola Screen: No symptoms or risks identified at this time. Initial Sepsis Screen: Does the patient meet any 2 criteria? No. Patient's initial sepsis screen is negative. Does the patient have a suspected source of infection? No. Patient's initial sepsis screen is negative. Risk Assessment: Do you want to hurt yourself or someone else? Patient reports no desire to harm self or others. Onset of symptoms was March 29, 2021. 22:20 Method Of Arrival: Ambulatory bb 22:20 Acuity: МАРИНА 3 bb Triage Assessment: 22:22 General: Appears in no apparent distress. Behavior is calm, cooperative. Pain: Denies bb pain. Neuro: Level of Consciousness is awake, alert, obeys commands, Oriented to person, place, time, situation. Cardiovascular: Capillary refill < 3 seconds Patient's skin is warm and dry. Respiratory: Respiratory effort is even, unlabored, Respiratory pattern is regular. GI: Reports intolerance of food. Derm: Skin is pink, warm \T\ dry. Musculoskeletal: Circulation, motion, and sensation intact. 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 - Social history:: Smoking status: Patient denies any tobacco usage or history of. Assessment: 03/30 00:00 Reassessment: pt sent to T\ via wheelchair by this RN. bb 07:11 Reassessment: Pt never returned after being assessed during visit to T\ per NICKY Olson.ss Vital Signs: 03/29 22:20 BP 129 / 76; Pulse 102; Resp 16 S; Temp 98.6(O); Pulse Ox 100% on R/A; Weight 90.72 kg bb (R); Height 5 ft. 7 in. (170.18 cm) (R); Pain 0/10; 22:20 Body Mass Index 31.32 (90.72 kg, 170.18 cm) bb ED Course: 21:57 Patient arrived in ED. ag3 22:22 Triage completed. bb 22:22 Arm band placed on Patient placed in waiting room, Patient notified of wait time. bb Family accompanied patient. 03/30 00:02 Ruiz Browning NP is PHCP. pm1 00:02 Juve Kim MD is Attending Physician. pm1 07:12 No provider procedures requiring assistance completed. Patient did not have IV access ss during this emergency room visit. Administered Medications: No medications were administered Outcome: 07:12 Eloped SEE NURSES NOTE ss 07:13 Patient left the ED. Signatures: Whitney Mccarthy RN RN bb Marcia Dominguez RN RN Ruiz Browning NP MANAGER MARKETING SALES pm1 Shanice Miranda ag3
[2021-03-30 07:17] VITALS: BP 129/76; TEMP 98.6; O2SAT 100
== END 2021-03-30 07:13 | disposition left against medical advice (07) ==
LOC: ER 21:53
DX: O26.893 Other specified pregnancy related conditions, third trimester (principal); Z3A.38 38 weeks gestation of pregnancy
CPT/HCPCS: 99281

== ENCOUNTER 2021-06-19 16:40 | Emergency (ER) | payer BC ==
[2021-06-19 17:14] LABS: Urine Blood 3+ (Negative); Urine Glucose Trace (Negative); Urine Protein 2+ (Negative); Urine Specific Gravity >=1.030 (1.005-1.030)
--- NOTE | 2021-06-19 17:17 | EDPHYS ---
Physician Documentation [facility] [place], [place] Name: Tyrell Harvey Age: 20 yrs Sex: Female : 2000 Arrival Date: 06/19/2021 Time: 16:43 Bed 20 Private MD: ED Physician Primo Desir HPI: 06/19 17:14 This 20 yrs old Female presents to ER via Ambulatory with complaints of jmm Vaginal discomfort. 17:14 The patient presents with rash, dysuria. Onset: The symptoms/episode began/occurred jmm gradually, 3 day(s) ago. Modifying factors: The symptoms are alleviated by nothing, the symptoms are aggravated by nothing. Associated signs and symptoms: Pertinent positives: dysuria, Pertinent negatives: fever, vaginal discharge, vomiting. 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 - Social history:: Smoking status: Patient denies any tobacco usage or history of. ROS: 17:14 Constitutional: Negative for fever, chills, and weight loss, Cardiovascular: Negative jmm for chest pain, palpitations, and edema, Respiratory: Negative for shortness of breath, cough, wheezing, and pleuritic chest pain. 17:14 : Positive for urinary symptoms. 17:14 All other systems are negative. Exam: 17:14 Constitutional: This is a well developed, well nourished patient who is awake, alert, jmm and in no acute distress. Head/Face: atraumatic. Eyes: EOMI, no conjunctival erythema appreciated ENT: Moist Mucus Membranes Neck: Trachea midline, Supple Chest/axilla: Normal chest wall appearance and motion. Cardiovascular: Regular rate and rhythm. No edema appreciated Respiratory: Normal respirations, no respiratory distress appreciated Abdomen/GI: Non distended, soft Back: Normal ROM 17:14 : Mild folliculitis noted to the vaginal area. 17:14 Musculoskeletal/extremity: ROM: intact in all extremities. 17:14 Skin: Appearance: Color: normal in color. 17:14 Neuro: Orientation: is normal, Mentation: is normal, Memory: is normal. 17:14 Psych: Behavior/mood is pleasant, cooperative. Vital Signs: 16:48 BP 115 / 60; Pulse 80; Resp 20; Temp 97.5(O); Pulse Ox 100% on R/A; Weight 81.65 kg kg (R); Height 5 ft. 7 in. (170.18 cm) (R); Pain 2/10; 16:48 Body Mass Index 28.19 (81.65 kg, 170.18 cm) kg MDM: 17:09 Patient medically screened. [facility] 17:15 Data reviewed: vital signs, nurses notes. Counseling: I had a detailed discussion with jimmy the patient and/or guardian regarding: the historical points, exam findings, and any diagnostic results supporting the discharge/admit diagnosis, lab results, the need for outpatient follow up, to return to the emergency department if symptoms worsen or persist or if there are any questions or concerns that arise at home. ED course: Physical exam consistent with a mild folliculitis. UA is concerning for urinary tract infection. Will treat with oral antibiotics and patient advised follow with PCP and otherwise given strict return precautions. Patient understood agrees plan of care.. 06/19 17:01 Order name: GC (GONORR/CHLAMYDIA) Probe [facility] 06/19 17:14 Order name: Urine Dipstick-Ancillary; Complete Time: 17:25 [facility] 06/19 17:33 Order name: Urine --Ancillary (enter results) 06/19 17:33 Order name: Urine --Ancillary [facility] 06/19 17:35 Order name: GC (Zach/Chl) Probe URINE [facility] 06/19 17:01 Order name: Pelvic Exam Setup; Complete Time: 17:15 [facility] 06/19 17:01 Order name: Urine Dipstick-Ancillary (obtain specimen); Complete Time: 17:15 [facility] 06/19 17:01 Order name: Urine Test (obtain specimen); Complete Time: 17:15 [facility] Administered Medications: No medications were administered Disposition Summary: 06/19/21 17:16 Discharge Ordered Location: Home [facility] Condition: Stable [facility] Diagnosis - Folliculitis [facility] - UTI [facility] Followup: [facility] - With: Private Physician - When: 2 - 3 days - Reason: Recheck today's complaints, Continuance of care, Re-evaluation by your physician Discharge Instructions: - Discharge Summary Sheet jmm - Urinary Tract Infection, Adult jmm - Folliculitis [facility] Forms: - Medication Reconciliation Form jmm - Thank You Letter jimmy - Antibiotic Education jmm - Prescription Opioid Use jmm - Work release form eb Prescriptions: - Bactrim DS 800-160 mg Oral Tablet - take 1 tablet by ORAL route every 12 hours for 7 days; 14 tablet; Refills: 0, [facility] Product Selection Permitted Addendum: 06/24/2021 04:36 Co-signature as Attending Physician, Primo Desir MD PA/CODING SUPPORT SPECIALIST's history reviewed, m a2 patient interviewed, and examined. I agree with assessment and care plan and confirm the diagnosis (es) above. Signatures: Dispatcher [employer] EDMS Homer Cesar PA PA jmm Alzahri, Mohammad, MD MD ma2 Maddison Dexter RN RN tr6 Wanda Steele RN RN kg Corrections: (The following items were deleted from the chart) 06/19 17:35 17:02 GC (Zach/Chl) Probe CX/URE ordered. EDMS EDMS
--- NOTE | 2021-06-19 17:17 | ER ---
Nurse's Notes [facility] Name: Tyrell Harvey Age: 20 yrs Sex: Female : 2000 Arrival Date: 06/19/2021 Time: 16:43 Bed 20 Private MD: Diagnosis: Folliculitis;UTI Presentation: 06/19 16:48 Chief complaint: Patient states: Pain with urination, Lower abdominal pain x 3 days and kg vaginal bumps x 2 weeks. Pt stated, " I recently had control implant placed in my arm and I'm not sure if I'm having side effects from that.". Coronavirus screen: Vaccine status: Patient reports being unvaccinated. Ebola Screen: Patient negative for fever greater than or equal to 101.5 degrees Fahrenheit, and additional compatible Ebola Virus Disease symptoms Patient denies exposure to infectious person. Patient denies travel to an Ebola-affected area in the 21 days before illness onset. Initial Sepsis Screen: Does the patient meet any 2 criteria? No. Patient's initial sepsis screen is negative. Does the patient have a suspected source of infection? No. Patient's initial sepsis screen is negative. Risk Assessment: Do you want to hurt yourself or someone else? Patient reports no desire to harm self or others. Onset of symptoms was June 17, 2021. 16:48 Method Of Arrival: Ambulatory kg 16:48 Acuity: МАРИНА 4 kg Triage Assessment: 16:52 General: Appears in no apparent distress. Behavior is calm, cooperative, appropriate kg for age, quiet. Pain: Complains of pain in right lower quadrant and left lower quadrant Pain currently is 2 out of 10 on a pain scale. at worst was 7 out of 10 on a pain scale. level that patient reports is acceptable is 3 out of 10 on a pain scale. 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 - Social history:: Smoking status: Patient denies any tobacco usage or history of. Screenin:19 Abuse screen: Denies threats or abuse. Denies injuries from another. Nutritional tr6 screening: No deficits noted. Tuberculosis screening: No symptoms or risk factors identified. Fall Risk None identified. Assessment: 17:18 General: Appears uncomfortable, Behavior is calm, cooperative, appropriate for age. tr6 Pain: Complains of pain in abdomen and left lower quadrant and right lower quadrant. Neuro: No deficits noted. Cardiovascular: No deficits noted. Respiratory: No deficits noted. GI: Abdomen is flat. : Reports burning with urination, pain with urination, urinary frequency. EENT: No deficits noted. Derm: Reports pain painful bumps in genital area. Derm:. Musculoskeletal: No deficits noted. Vital Signs: 16:48 BP 115 / 60; Pulse 80; Resp 20; Temp 97.5(O); Pulse Ox 100% on R/A; Weight 81.65 kg kg (R); Height 5 ft. 7 in. (170.18 cm) (R); Pain 2/10; 16:48 Body Mass Index 28.19 (81.65 kg, 170.18 cm) kg ED Course: 16:43 Patient arrived in ED. mr 16:45 Maddison Dexter, RN is Primary Nurse. tr6 16:52 Triage completed. kg 16:52 Arm band placed on right wrist. kg 16:55 Homer Cesar PA is PHCP. jmm 16:55 Primo Desir MD is Attending Physician. jmm 17:19 Patient has correct armband on for positive identification. Pulse ox on. NIBP on. tr6 17:20 Assist provider with pelvic exam: Performed by Homer WELLS. Patient did not have IV tr6 access during this emergency room visit. Administered Medications: No medications were administered Outcome: 17:16 Discharge ordered by . [facility] 17:21 Discharged to home ambulatory. tr6 17:21 Condition: stable 17:21 Discharge instructions given to patient, Instructed on discharge instructions, follow up and referral plans. Demonstrated understanding of instructions, follow-up care, medications. 17:38 Patient left the ED. tr6 Signatures: Homer Cesar PA PA jmm Rivera, Mary mr Maddison Dexter, RN RN tr6 Wanda Steele RN RN kg
[2021-06-19 18:40] VITALS: BP 115/60; TEMP 97.5; O2SAT 100
[2021-06-23 07:41] LABS: C.trachomatis RNA,TMA Not Detected (Not Detected)
== END 2021-06-19 17:38 | disposition home or self-care (01) ==
LOC: ER 16:40
DX: N39.0 Urinary tract infection, site not specified (principal); L73.9 Follicular disorder, unspecified
CPT/HCPCS: 81003; 81025; 87490; 87590; 99283